=== PATIENT | male | born 2000 | race Caucasian/White ===

== ENCOUNTER 2023-11-21 09:57 | Observation (INO) | payer OTHER, SELFPAY ==
[2023-11-21] VITALS (10 sets, daily range): BP systolic 99–128; BP diastolic 53–80; PULSE 74–108; TEMP 36.6–37.3; O2SAT 93–99; BMI 18.8; BMI 17.9
--- NOTE | 2023-11-21 10:19 | CT_ITS ---
[address] [address] Patient Name: EFRAIN CORREA MRN: [id number] date: 2000 Sex: M Assigned Patient Location: ED.MAIN Current Patient Location: Accession/Order Number: [id number] Exam Date: 11/21/2023 10:56 Report Date: 11/21/2023 11:25 At the request of: HARESH MUELLER Procedure: CT abdomen pelvis w con EXAMINATION: CT abdomen pelvis w con HISTORY: abd pain COMPARISON: No relevant comparison available. TECHNIQUE: Axial, Coronal, and Sagittal images were obtained without and/or with IV contrast as indicated by examination type. Dose reduction techniques were achieved by using automated exposure control and/or adjustment of mA and/or kV according to patient size and/or use of iterative reconstruction technique. FINDINGS: LUNG BASES: No visible pulmonary or pleural disease. LIVER: No enlargement, atrophy, suspicious density, or significant focal lesion. BILIARY: No dilatation or calcification. PANCREAS: No lesion, fluid collection, or abnormal duct dilatation. SPLEEN: No enlargement or focal lesion. ADRENALS: No mass or enlargement. KIDNEYS: No mass, obstruction, or calcification. BOWEL/MESENTERY: Fluid-filled abnormally dilated small bowel and fluid-filled colon. Abnormal circumferential wall thickening of distal ileum with suspected marked narrowing at the ileocecal valve. Moderate amount of free fluid within the pelvis, likely secondary to edema. No free air to suggest perforation. AORTA/VASCULAR: No aneurysm or dissection. RETROPERITONEUM: No mass or adenopathy. LYMPH NODES: No adenopathy. URINARY BLADDER: No visible focal wall thickening, lesion, or calculus. PELVIC ORGANS: No visible mass. Pelvic organs appropriate for patient age. ABDOMINAL WALL: No mass or hernia. BONES: No bony lesion or fracture. OTHER: Negative. CT/CT abdomen pelvis w con IMPRESSION: 1. Abnormally distended fluid-filled small and large bowel with abnormal wall thickening of distal ileum and moderate-marked narrowing of the ileocecal valve/terminal ileum. 2. Moderate amount of free fluid likely secondary to edema. No free air. 3. Normal appendix. Electronically authenticated by: DAVIS CORREA Date: 11/21/2023 11:25
--- NOTE | 2023-11-21 10:19 | ED.ABDPAIN1 ---
HPI - Abdominal Pain General Chief Complaint: Abdominal Pain Stated Complaint: VOMITING , DIARRHEA Time Seen by Provider: 11/21/23 10:11 History of Present Illness HPI narrative: 23-year-old male presents for abdominal pain. It started just over 24 hours ago. He has had some vomiting and diarrhea as well. The pain has gotten worse over time he points to the mid upper abdomen. No family members have been ill. No blood in his vomit or stool. The pain is moderate to severe. Related Data Home Medications ?Medication ?Instructions ?Recorded ?Confirmed No Known Home Medications 11/21/23 11/21/23 Allergies Allergy/AdvReac Type Severity Reaction Status Date / Time No Known Drug Allergies Allergy Verified 11/21/23 10:10 Review of Systems ROS Narrative A ten point review of systems is negative except as noted above. Exam Narrative Exam Narrative: Nurses note and vital signs reviewed and patient is not hypoxic. General: The patient appears uncomfortable and has an emesis basin. Skin: Warm, dry, pallor noted. There is no rash noted. Head: Normocephalic, atraumatic Eye: Normal conjunctiva, no drainage Ears, Nose, Mouth, and Throat: oral mucosa is moist. Nares patent. Cardiovascular: Regular Rate and Rhythm Respiratory: Patient is in no distress, no accessory muscle use, lungs are clear to auscultation, no wheezing, rales or rhonchi Back: non-tender GI: Tenderness in the mid abdomen Musculoskeletal: The patient has no evidence of calf tenderness, no pitting edema, symmetrical pulses noted bilaterally Neurological: A&O, normal speech Psychiatric: Cooperative Constitutional Vital Signs, click to edit/add: Last Vital Signs Temp 98.1 F 11/21/23 10:11 Pulse 80 11/21/23 10:11 Resp 18 11/21/23 10:11 BP 128/80 11/21/23 10:11 Pulse Ox 98 11/21/23 10:11 O2 Del Method Room Air 11/21/23 10:11 Course Vital Signs Vital signs: Vital Signs Temperature 98.1 F 11/21/23 10:11 Pulse Rate 80 11/21/23 10:11 Respiratory Rate 18 11/21/23 10:11 Blood Pressure 128/80 11/21/23 10:11 Pulse Oximetry 98 11/21/23 10:11 Oxygen Delivery Method Room Air 11/21/23 10:11 Temperature 98.1 F 11/21/23 10:11 Pulse Rate 80 11/21/23 10:11 Respiratory Rate 18 11/21/23 10:11 Blood Pressure 128/80 11/21/23 10:11 Pulse Oximetry 98 11/21/23 10:11 Oxygen Delivery Method Room Air 11/21/23 10:11 MDM - Abdominal Pain MDM Narrative Medical decision making narrative: Ileitis is identified on his CT scan. He is feeling improved after IV fluids and Zofran and is being admitted for IV Rocephin and Flagyl as well as IV fluids and antiemetics. Findings are discussed with the patient and his mother. Differential Diagnosis Differential diagnosis: Likely abdominal pain, acute appendicitis, constipation, diverticulitis, gastroenteritis, pancreatitis and small bowel obstruction Lab Data Attestation: I reviewed the patient's lab results. Labs: Lab Results 11/21/23 Range/Units 10:33 WBC 9.7 (4.0-11.0) 10^3/uL RBC 5.34 (4.70-6.10) 10^6/uL Hgb 16.8 (14.0-18.0) g/dL Hct 49.9 (42.0-54.0) % MCV 93.4 (80.0-94.0) fL MCH 31.5 (25.9-34.0) pg MCHC 33.7 (29.9-35.2) g/dL RDW 11.4 (11.0-15.0) % Plt Count 191 (150-450) 10^3/uL MPV 11.8 (9.5-13.5) fL Neut % (Auto) 83.2 H (43.0-75.0) % Lymph % (Auto) 7.9 L (20.5-60.0) % [place] % (Auto) 7.9 (1.7-12.0) % Eos % (Auto) 0.6 L (0.9-7.0) % Baso % (Auto) 0.2 (0.2-2.0) % Neut # (Auto) 8.1 H (1.4-6.5) 10^3/uL Lymph # (Auto) 0.8 L (1.2-3.8) 10^3/uL [place] # (Auto) 0.8 (0.3-0.8) 10^3/uL Eos # (Auto) 0.1 (0.0-0.7) 10^3/uL Baso # (Auto) 0.0 (0.0-0.1) 10^3/uL Abs Immat Gran (auto) 0.02 (0.00-0.03) 10^3/uL Imm/Tot Granulo (auto) 0.2 (0.0-0.5) % Sodium 138 (136-145) mmol/L Potassium 4.5 (3.5-5.1) mmol/L Chloride 100 (98-107) mmol/L Carbon Dioxide 30.0 (21.0-32.0) mmol/L Anion Gap 12.5 BUN 21.0 H (7.0-18.0) mg/dL Creatinine 0.98 (0.70-1.30) mg/dL Est GFR ( Amer) >60 (>=60) Est GFR (Non-Af Amer) >60 (>=60) BUN/Creatinine Ratio 21.4 Glucose 119 H (74-106) mg/dL Calcium 10.4 H (8.5-10.1) mg/dL Total Bilirubin 1.4 H (0.2-1.0) mg/dL Direct Bilirubin 0.3 H (0.0-0.2) mg/dL AST 20 (15-37) U/L ALT 23 (16-63) U/L Alkaline Phosphatase 92 (46-116) U/L Total Protein 8.5 H (6.4-8.2) g/dL Albumin 4.4 (3.4-5.0) g/dL Globulin 4.1 g/dL Albumin/Globulin Ratio 1.1 Amylase 166 H (25-115) U/L Lipase 87.0 H (16.0-77.0) U/L Imaging Data CT scan - abdomen: Radiologist's impression: ITS Impressions Abdomen/Pelvis CT 11/21/23 10:19 IMPRESSION: 1. Abnormally distended fluid-filled small and large bowel with abnormal wall thickening of distal ileum and moderate-marked narrowing of the ileocecal valve/terminal ileum. 2. Moderate amount of free fluid likely secondary to edema. No free air. 3. Normal appendix. Electronically authenticated by: DAVIS CORREA Date: 11/21/2023 11:25 Discharge Plan Discharge Chief Complaint: Abdominal Pain Clinical Impression: Ileitis Patient Disposition: Admitted As Inpatient Time of Disposition Decision: 11:41 Condition: Good
[2023-11-21] MEDS: 0.9 % SODIUM CHLORIDE 1,000 ML 1000 ML IV (10:29)
[2023-11-21] MEDS: ONDANSETRON PF 4 MG/2 ML VIAL IV (10:29)
[2023-11-21 10:41] LABS: Basophils Percent Auto 0.2 % (0.2-2.0); Eosinophils Absolute Auto 0.1 10^3/uL (0.0-0.7); Eosinophils Percent Auto 0.6 % (0.9-7.0); Hematocrit 49.9 % (42.0-54.0); Hemoglobin 16.8 g/dL (14.0-18.0); Immature Granulocytes Abs Auto 0.02 10^3/uL (0.00-0.03); Immature Granulocytes Pct Auto 0.2 % (0.0-0.5); Lymphocytes Absolute Auto 0.8 10^3/uL (1.2-3.8); Lymphocytes Percent Auto 7.9 % (20.5-60.0); Mean Corpuscular HGB Conc 33.7 g/dL (29.9-35.2); Mean Corpuscular Hemoglobin 31.5 pg (25.9-34.0); Mean Corpuscular Volume 93.4 fL (80.0-94.0); Mean Platelet Volume 11.8 fL (9.5-13.5); Monocytes Absolute Auto 0.8 10^3/uL (0.3-0.8); Monocytes Percent Auto 7.9 % (1.7-12.0); Neutrophils Absolute Auto 8.1 10^3/uL (1.4-6.5); Neutrophils Percent Auto 83.2 % (43.0-75.0); Platelet Count 191 10^3/uL (150-450); Red Blood Count 5.34 10^6/uL (4.70-6.10); Red Cell Distribution Width 11.4 % (11.0-15.0); White Blood Count 9.7 10^3/uL (4.0-11.0)
[2023-11-21 10:59] LABS: Amylase 166 U/L (25-115)
[2023-11-21 11:02] LABS: Alanine Aminotransferase 23 U/L (16-63); Albumin Globulin Ratio 1.1; Albumin Level 4.4 g/dL (3.4-5.0); Alkaline Phosphatase 92 U/L (46-116); Anion Gap 12.5; Aspartate Amino Transferase 20 U/L (15-37); BUN Creatinine Ratio 21.4; Bilirubin Direct 0.3 mg/dL (0.0-0.2); Bilirubin Total 1.4 mg/dL (0.2-1.0); Calcium 10.4 mg/dL (8.5-10.1); Chloride 100 mmol/L (98-107); Estimated GFR (African America >60 (>=60); Estimated GFR (Non-African Ame >60 (>=60); Globulin 4.1 g/dL; Glucose 119 mg/dL (74-106); Potassium 4.5 mmol/L (3.5-5.1); Sodium 138 mmol/L (136-145); Total Protein 8.5 g/dL (6.4-8.2)
[2023-11-21 12:05] LABS: Adenovirus F 40/41 NOT DETECTED (NOT DETECTE); Astrovirus NOT DETECTED (NOT DETECTE); Campylobacter NOT DETECTED (NOT DETECTE); Cryptosporidium NOT DETECTED (NOT DETECTE); Cyclospora cayetanensis NOT DETECTED (NOT DETECTE); Entamoeba histolytica NOT DETECTED (NOT DETECTE); Enteroaggregative E.coli NOT DETECTED (NOT DETECTE); Enteropathogenic E.coli NOT DETECTED (NOT DETECTE); Enterotoxigenic E. coli NOT DETECTED (NOT DETECTE); Giardia lamblia NOT DETECTED (NOT DETECTE); Norovirus GI/GII NOT DETECTED (NOT DETECTE); Plesiomonas shigelloides NOT DETECTED (NOT DETECTE); Rotavirus A NOT DETECTED (NOT DETECTE); Salmonella NOT DETECTED (NOT DETECTE); Sapovirus NOT DETECTED (NOT DETECTE); Shiga-like toxin-producing E.C NOT DETECTED (NOT DETECTE); Shigella/Enteroinvasive E.coli NOT DETECTED (NOT DETECTE); Vibrio NOT DETECTED (NOT DETECTE); Vibrio cholerae NOT DETECTED (NOT DETECTE); Yersinia enterocolitica NOT DETECTED (NOT DETECTE)
[2023-11-21] MEDS: CEFTRIAXONE 1,000 MG in 0.9 % SODIUM CHLORIDE 50 ML 100 MG IV (12:18)
[2023-11-21] MEDS: METRONIDAZOLE/SODIUM CHLORIDE 500 MG/100 ML PREMIX 100 MG IV (12:34)
[2023-11-21] MEDS: MORPHINE SULFATE 2 MG/ML SYRINGE IV (12:52)
[2023-11-21] MEDS: LACTATED RINGER'S SOLUTION 1,000 ML 125 ML IV ×2 (14:29→22:00)
--- NOTE | 2023-11-21 14:56 | PM.HP ---
HPI H&P: HPI History of Present Illness Chief complaint: VOMITING , DIARRHEA, ILEITIS Narrative: 23 y o male with no sig PMhx presented with nausea, vomiting and diarrhea x 1-2 days. His symptoms started with watery stool. large quantity and multiple episodes of diarrhea. He then developed intractable nausea/vomiting this morning and has been unable to keep his food down. He came to ED and his work up revealed ilieitis/colitis and given the severity of his symptoms - he was admitted for overnight to manage his GI symptoms. I had initially started him on rocephin/flagyl but later on tested positive for C diff. D/c'ed IV abx, started on PO vancomycin. Opioid HPI Opioid Management Most Recent Opioid Data: Last Pain Scale 4 11/21/23 12:52 Last SEP Pain Assessment 11/21/23 12:52 Review of Systems ROS Status of ROS 10 or more systems reviewed and unremarkable except as noted in history and below [facility] Social History (Updated 11/21/23 @ 14:36 by Ester Mc) Within the past year, how often did you have a drink containing alcohol: never Score interpretation: A score less than 4 is consistent with normal alcohol consumption. Smoking status: Never smoker Non-prescribed substance use: denies use Previous occupational history: college Highest level of school completed/degree received: some college, no degree Are you now , , , , never or living with a partner: never In a typical week, how many times do you talk on the telephone with family, friends, or neighbors: 3 or more times per week How often do you get together with friends or relatives: 3 or more times per week How often do you attend baptist or quaker services: never Do you belong to any clubs or organizations such as baptist groups unions, fraternal or athletic groups, or school groups: no Total score: 1 Score interpretation: A score of less than or equal to 1 indicates the most socially isolated. Little interest or pleasure in doing things: not at all Feeling down, depressed, or hopeless: not at all Feel stressed/tense/nervous/anxious/difficulty sleeping: not at all Meds Home Medications and Allergies Home Medications ?Medication ?Instructions ?Recorded ?Confirmed ?Type No Known Home Medications 11/21/23 11/21/23 History Allergies Allergy/AdvReac Type Severity Reaction Status Date / Time No Known Drug Allergies Allergy Verified 11/21/23 10:10 Exam Constitutional Vital Signs, click to edit/add: Last Vital Signs Temp 97.9 F 11/21/23 14:27 Pulse 90 11/21/23 14:27 Resp 18 11/21/23 14:27 BP 113/71 11/21/23 14:27 Pulse Ox 97 11/21/23 14:27 O2 Del Method Room Air 11/21/23 14:27 Documenting provider has reviewed patient's vital signs: yes Common normals: no apparent distress and oriented x3 General appearance: cooperative Other: Appears clinically dry Eye Common normals: conjunctivae normal and no scleral icterus Conjunctiva: conjunctiva(e) normal Respiratory Common normals: normal respiratory effort and clear to auscultation bilaterally Effort & inspection: able to speak in complete sentences Auscultation: clear to auscultation bilaterally Cardio Common normals: regular rate, S1 normal heart sound and S2 normal heart sound Rate: regular rate Heart sounds: S1 normal and S2 normal GI Common normals: Normal to inspection, nondistended, normoactive bowel sounds present, soft to palpation and no hepatosplenomegaly Palpation: soft and no hepatosplenomegaly Other: Non specific generalized tenderness Extremity Common normals: no clubbing, cyanosis or edema Neuro Common normals: oriented x3, moves all extremities and no focal motor deficits Psych Common normals: mental status grossly normal, denies hallucinations, denies homicidal ideation and denies suicidal ideation Results Labs Labs: Short CBC 11/21/23 Range/Units 10:33 WBC 9.7 (4.0-11.0) 10^3/uL Hgb 16.8 (14.0-18.0) g/dL Hct 49.9 (42.0-54.0) % Plt Count 191 (150-450) 10^3/uL BMP 11/21/23 10:33 Sodium 138 Potassium 4.5 Chloride 100 Carbon Dioxide 30.0 BUN 21.0 H Creatinine 0.98 Glucose 119 H Calcium 10.4 H Liver Function 11/21/23 Range/Units 10:33 Total Bilirubin 1.4 H (0.2-1.0) mg/dL Direct Bilirubin 0.3 H (0.0-0.2) mg/dL AST 20 (15-37) U/L ALT 23 (16-63) U/L Alkaline Phosphatase 92 (46-116) U/L Albumin 4.4 (3.4-5.0) g/dL Assessment and Plan Assessment and Plan (1) C. difficile colitis: (2) Intractable nausea and vomiting: Plan Patient presented with intractable nausea, vomiting and diarrhea. Tested positive for C diff. Started on PO vancomycin. C/w IVF, IV zofran as needed. Advance diet as tolerated. Will d/c once able to tolerate PO diet.
[2023-11-21] MEDS: PANTOPRAZOLE SODIUM 40 MG VIAL IV (16:07)
[2023-11-21] MEDS: ENOXAPARIN SODIUM 40 MG/0.4 ML SYRINGE SUBQ (17:46)
[2023-11-21] MEDS: VANCOMYCIN HCL 7,500 MG/150 ML BOTTLE 125 MG PO ×2 (17:58→21:58)
[2023-11-21] MEDS: ACETAMINOPHEN 325 MG TABLET 650 MG PO (22:01)
[2023-11-22] VITALS (11 sets, daily range): BP systolic 91–93; BP diastolic 57–60; PULSE 60–84; TEMP 36.6–37.1; O2SAT 94–96
[2023-11-22 05:02] LABS: Basophils Percent Auto 0.2 % (0.2-2.0); Eosinophils Absolute Auto 0.2 10^3/uL (0.0-0.7); Eosinophils Percent Auto 5.4 % (0.9-7.0); Hemoglobin 12.8 g/dL (14.0-18.0); Immature Granulocytes Abs Auto 0.01 10^3/uL (0.00-0.03); Immature Granulocytes Pct Auto 0.2 % (0.0-0.5); Lymphocytes Absolute Auto 1.3 10^3/uL (1.2-3.8); Lymphocytes Percent Auto 29.6 % (20.5-60.0); Mean Corpuscular HGB Conc 33.7 g/dL (29.9-35.2); Mean Corpuscular Hemoglobin 31.6 pg (25.9-34.0); Mean Corpuscular Volume 93.8 fL (80.0-94.0); Mean Platelet Volume 12.5 fL (9.5-13.5); Monocytes Absolute Auto 0.8 10^3/uL (0.3-0.8); Monocytes Percent Auto 19.5 % (1.7-12.0); Neutrophils Absolute Auto 1.9 10^3/uL (1.4-6.5); Neutrophils Percent Auto 45.1 % (43.0-75.0); Platelet Count 145 10^3/uL (150-450); Red Blood Count 4.05 10^6/uL (4.70-6.10); Red Cell Distribution Width 11.5 % (11.0-15.0); White Blood Count 4.3 10^3/uL (4.0-11.0)
[2023-11-22] MEDS: VANCOMYCIN HCL 7,500 MG/150 ML BOTTLE 125 MG PO ×2 (05:17→13:47)
[2023-11-22 05:30] LABS: Alanine Aminotransferase 14 U/L (16-63); Albumin Globulin Ratio 0.9; Albumin Level 2.8 g/dL (3.4-5.0); Alkaline Phosphatase 58 U/L (46-116); Anion Gap 11.5; Aspartate Amino Transferase 15 U/L (15-37); BUN Creatinine Ratio 15.4; Bilirubin Total 1.2 mg/dL (0.2-1.0); Calcium 8.3 mg/dL (8.5-10.1); Chloride 103 mmol/L (98-107); Estimated GFR (African America >60 (>=60); Estimated GFR (Non-African Ame >60 (>=60); Glucose 96 mg/dL (74-106); Potassium 3.5 mmol/L (3.5-5.1); Sodium 138 mmol/L (136-145); Total Protein 5.8 g/dL (6.4-8.2)
[2023-11-22] MEDS: LACTATED RINGER'S SOLUTION 1,000 ML 125 ML IV (06:08)
--- NOTE | 2023-11-22 12:06 | CM.NOTE ---
Rounds made with Dr. Thakur, pt will discharge to home today on oral vancomycin. Discussed with pt diagnosis and c-diff infection, importance of completing antibiotic therapy.
--- NOTE | 2023-11-22 12:08 | PM.DS1 ---
DS: Providers Provider Date of admission: 11/21/23 13:22 Primary care physician: Kassandra Disla MD Admitting clinician: Shaikh Ofe Attending physician on admission: Shaikh Ofe Attending physician on discharge: Shaikh Ofe Discharging clinician: Shaikh Ofe Anticipated date of discharge: 11/22/23 DS: Diagnosis Discharge Diagnosis (1) C. difficile colitis: Assessment and plan: Better now. Tolerating oral diet. Will discharge on p.o. vancomycin (2) Intractable nausea and vomiting: Assessment and plan: Due to C. difficile colitis. Doing better. Tolerating p.o. diet. Will discharge on p.o. vancomycin DS: Summary Hospital Course Hospital Course: Was admitted for intractable nausea and vomiting along with abdominal pain and diarrhea. Workup in ED including CT abdomen pelvis was consistent with ileitis/colitis. GI panel revealed stool was positive for C. difficile. Patient was initially started on IV Rocephin and Flagyl that were later on discontinued and patient was then started on p.o. vancomycin. Patient was observed overnight with improvement in his symptoms. He is tolerating p.o. diet. He is stable for discharge on p.o. vancomycin. Status at Discharge Functional status at discharge: independent ambulation Overall status at discharge: patient is back to baseline Time Spent with Patient Time attestation: Total time spent providing and/or coordinating discharge services: Time spent: greater than 30 minutes Exam Constitutional Vital Signs, click to edit/add: Last Vital Signs Temp 98.7 F 11/22/23 08:00 Pulse 72 11/22/23 11:48 Resp 18 11/22/23 08:00 BP 91/57 11/22/23 08:00 Pulse Ox 96 11/22/23 11:43 O2 Del Method Room Air 11/22/23 11:43 Documenting provider has reviewed patient's vital signs: yes Common normals: no apparent distress and oriented x3 General appearance: cooperative Other: Appears clinically dry Eye Common normals: conjunctivae normal and no scleral icterus Conjunctiva: conjunctiva(e) normal Respiratory Common normals: normal respiratory effort and clear to auscultation bilaterally Effort & inspection: able to speak in complete sentences Auscultation: clear to auscultation bilaterally Cardio Common normals: regular rate, S1 normal heart sound and S2 normal heart sound Rate: regular rate Heart sounds: S1 normal and S2 normal GI Common normals: Normal to inspection, nondistended, normoactive bowel sounds present, soft to palpation and no hepatosplenomegaly Palpation: soft and no hepatosplenomegaly Other: Non specific generalized tenderness Extremity Common normals: no clubbing, cyanosis or edema Neuro Common normals: oriented x3, moves all extremities and no focal motor deficits Psych Common normals: mental status grossly normal, denies hallucinations, denies homicidal ideation and denies suicidal ideation DS: Data Data Completed and Pending Labs on day of discharge: Labs from last 24 hours 11/22/23 11/21/23 04:26 12:00 WBC 4.3 RBC 4.05 L Hgb 12.8 L Hct 38.0 L MCV 93.8 MCH 31.6 MCHC 33.7 RDW 11.5 Plt Count 145 L MPV 12.5 Neut % (Auto) 45.1 Lymph % (Auto) 29.6 [place] % (Auto) 19.5 H Eos % (Auto) 5.4 Baso % (Auto) 0.2 Neut # (Auto) 1.9 Lymph # (Auto) 1.3 [place] # (Auto) 0.8 Eos # (Auto) 0.2 Baso # (Auto) 0.0 Abs Immat Gran (auto) 0.01 Imm/Tot Granulo (auto) 0.2 Sodium 138 Potassium 3.5 Chloride 103 Carbon Dioxide 27.0 Anion Gap 11.5 BUN 16.0 Creatinine 1.04 Est GFR ( Amer) >60 Est GFR (Non-Af Amer) >60 BUN/Creatinine Ratio 15.4 Glucose 96 Calcium 8.3 L Total Bilirubin 1.2 H AST 15 ALT 14 L Alkaline Phosphatase 58 Total Protein 5.8 L Albumin 2.8 L Globulin 3.0 Albumin/Globulin Ratio 0.9 Stl C. cayetanensis PCR Not detected Stool Rotavirus (PCR) Not detected Stool Adenovirus (PCR) Not detected Stool Astrovirus (PCR) Not detected Stool Campylobacter PCR Not detected Stool Cryptosporidium PCR Not detected St Sh/Enteroin Ecoli PCR Not detected Stl Enterotoxigenic E PCR Not detected Stool EPEC (PCR) Not detected Stl E. histolytica PCR Not detected Stool Giardia Lamblia PCR Not detected Stl P. shigelloides PCR Not detected Stool Salmonella PCR Not detected Stool Sapovirus (PCR) Not detected Stl Shiga-like Tx [address].enterocolitica PCR Not detected Stl Vibrio cholerae PCR Not detected Stl Enteroaggr Ecoli PCR Not detected Stl Norovirus GI/GII PCR Not detected Specimen Source Stool C. difficile Toxin A&B Detected A* Vibrio Culture Not detected Discharge Plan Discharge Disposition: Home, Self-Care Condition: Good Discharge Medications: New vancomycin 125 mg capsule 125 mg PO QID 14 Days Qty: 56 0RF ondansetron 4 mg tablet,disintegrating 4 mg PO Q8H PRN (Reason: nausea and vomiting) 5 Days Qty: 10 0RF Activity: increase activity as tolerated Diet: advance to your usual diet Print Language: Paraguayan Forms: Portal Instructions Follow Up Appointments: November 27 @ 10am with Dr. Disla [phone]
--- NOTE | 2023-11-26 13:27 | CM.DCFOLLOWU ---
Person spoke with: patient How are you feeling? well How is your pain? no pain Did you understand your discharge instructions? yes Do you have any questions about your discharge instructions? no Were you given any prescriptions at discharge? yes Were you able to get your prescriptions filled? yes Do you understand how to take your medications as ordered? yes Do you have any questions about your follow up appointment and do you plan to keep your follow up appointment? no questions, follow up 11/28/[address] Disla Is there anything else that you would like to discuss? no Questions/Comments/Concerns/Other: N/A
== END 2023-11-22 14:10 | disposition home or self-care (01) ==
LOC: ER 11:41 → MS 14:37
PROVIDERS: Admitting Provider Internal Medicine; Emergency Provider Emergency Medicine; PCP Family Medicine; Visit Provider Internal Medicine
DX: A04.72 Enterocolitis due to Clostridium difficile, not specified as recurrent (principal); R11.2 Nausea with vomiting, unspecified
CPT/HCPCS: 36415; 74177; 80048; 80053; 80076; 82150; 83690; 85025; 87507; 94761; 96361; 96365; 96366; 96367; 96372; 96375; 99285; G0378; Q9967